=== PATIENT | male | born 1990 | race Caucasian/White ===

== ENCOUNTER 2019-02-10 20:14 | Emergency (ER) | payer OTHER, BC ==
[~2019-02-10] VITALS: Ht 180.3 cm; Wt 91.4 kg
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
[2019-02-10] MEDS ORDERED: TETanus/Pertussis (Acell)/Diphther VAC/PF (Tdap-Adult) 0.5ml syringe IMVAC ONE (21:20)
[2019-02-10] MEDS ORDERED: HYDROcodone/acetaminophen 10/325mg tab PO ONE (21:20)
[2019-02-10] MEDS ORDERED: ondansetron 4mg rapidly disintigrating tab PO ONE (21:20)
--- NOTE | 2019-02-10 21:35 | NUR ---
PT TO CT AND XRAY. FAMIY REMAINS AT BEDSIDE. GIVEN NORCO AND ZOFRAN AND TETNUS BOOSTER
[2019-02-10] MEDS ORDERED: IBUP-1984 PO (22:35)
[2019-02-10] MEDS ORDERED: HYDR-4353 PO (22:35)
--- NOTE | 2019-02-10 22:35 | NUR ---
c collar removed by provider. pt awaiting to have wounds cleaned and sugar tong split placed to left wrist. received norco 1 hr ago.
--- NOTE | 2019-02-10 23:18 | NUR ---
splint to left arm was checked by Rosanne BUSTAMANTE, +cmst to left hand
[2019-02-10 23:19] VITALS: BP 147/76
== END 2019-02-10 23:21 | disposition home or self-care (01) ==
LOC: ER 20:15
DX: S52.92XA Unspecified fracture of left forearm, initial encounter for closed fracture (principal); S52.202A Unspecified fracture of shaft of left ulna, initial encounter for closed fracture; S50.811A Abrasion of right forearm, initial encounter; S80.211A Abrasion, right knee, initial encounter; Z56.0 Unemployment, unspecified; V29.9XXA Motorcycle rider (driver) (passenger) injured in unspecified traffic accident, initial encounter; Y93.55 Activity, bike riding; Y92.413 State road as the place of occurrence of the external cause; Y99.9 Unspecified external cause status
CPT/HCPCS: 29125; 70450; 71045; 72125; 73110; 73564; 90471; 99284

== ENCOUNTER 2019-02-16 09:33 | Outpatient (CLI) | payer OTHER, BC ==
[~2019-02-16 09:33] MED LIST: HYDR-4353 PO; IBUP-1984 PO
== END 2019-02-16 10:45 | disposition home or self-care (01) ==
LOC: ORTHO 09:33
PROVIDERS: ATTEND Nurse Practitioner
DX: S52.572D Other intraarticular fracture of lower end of left radius, subsequent encounter for closed fracture with routine healing (principal); V87.8XXD Person injured in other specified noncollision transport accidents involving motor vehicle (traffic), subsequent encounter
CPT/HCPCS: 73110; A4590; G0463

== ENCOUNTER 2019-03-03 09:19 | Outpatient (CLI) | payer OTHER, BC | END 2019-03-03 10:30 | disposition home or self-care (01) | LOC: ORTHO 09:19 | PROVIDERS: ATTEND Nurse Practitioner | DX: S52.592D Other fractures of lower end of left radius, subsequent encounter for closed fracture with routine healing (principal); S52.612D Displaced fracture of left ulna styloid process, subsequent encounter for closed fracture with routine healing; V29.9XXD Motorcycle rider (driver) (passenger) injured in unspecified traffic accident, subsequent encounter | CPT/HCPCS: 73110; A4590; G0463 ==

== ENCOUNTER 2019-03-22 09:32 | Outpatient (CLI) | payer OTHER, BC | END 2019-03-22 10:45 | disposition home or self-care (01) | LOC: ORTHO 09:32 | PROVIDERS: ATTEND Nurse Practitioner | DX: S52.592D Other fractures of lower end of left radius, subsequent encounter for closed fracture with routine healing (principal); S52.612D Displaced fracture of left ulna styloid process, subsequent encounter for closed fracture with routine healing; V29.9XXD Motorcycle rider (driver) (passenger) injured in unspecified traffic accident, subsequent encounter | CPT/HCPCS: 73110; A4590; G0463 ==

== ENCOUNTER 2020-01-29 11:56 | Emergency (ER) | payer BC ==
[~2020-01-29] VITALS: Ht 180.3 cm; Wt 90.9 kg
[2020-01-29 11:58] VITALS: BP 141/101
[2020-01-29] MEDS ORDERED: LIDOcaine 1% W/epiNEPHrine 1:200,000 10ml vial IJ ONE (12:05)
[2020-01-29] MEDS ORDERED: LIDOcaine 1% w/epiNEPHrine 1:200,000 30ml vial IJ ONE (12:05)
[2020-01-29] MEDS ORDERED: CEPH-572 PO (13:16)
[2020-01-29] MEDS ORDERED: HYDR-3965 PO (13:16)
== END 2020-01-29 14:07 | disposition home or self-care (01) ==
LOC: ER 11:57
DX: S61.216A Laceration without foreign body of right little finger without damage to nail, initial encounter (principal); M79.645 Pain in left finger(s); Z79.2 Long term (current) use of antibiotics; Z79.899 Other long term (current) drug therapy; Z56.0 Unemployment, unspecified; W29.3XXA Contact with powered garden and outdoor hand tools and machinery, initial encounter; Y93.89 Activity, other specified; Y92.89 Other specified places as the place of occurrence of the external cause; Y99.8 Other external cause status
CPT/HCPCS: 12002; 73130; 99283